=== PATIENT | female | born 1960 | race Caucasian/White ===

== ENCOUNTER 2016-07-10 20:52 | Emergency (ER) | payer MEDICAID, SELFPAY ==
[~2016-07-10] VITALS: Ht 160 cm; Wt 65.0 kg
[~2016-07-10 20:52] MED LIST: IBUP-1547 PO
[2016-07-10 22:52] LABS: BASOPHILS % (AUTO) 0.5 % (0.0-2.0); EOSINOPHILS % (AUTO) 2.6 % (1.0-6.0); HEMATOCRIT 35.3 % (36-46); HEMOGLOBIN 11.8 g/dL (12.0-16.0); LYMPHOCYTES # (AUTO) 1.5 K/uL (1.0-4.8); LYMPHOCYTES % (AUTO) 24.3 % (22.0-44.0); MEAN CORPUSCULAR HEMOGLOBIN 29.7 pg (26.0-34.0); MEAN CORPUSCULAR HGB CONC 33.4 G/dL (31.0-37.0); MEAN CORPUSCULAR VOLUME 89 fL (80-100); MONOCYTES # (AUTO) 0.6 K/uL (0.1-1.0); NEUTROPHILS # (AUTO) 3.9 K/uL (1.8-7.7); NEUTROPHILS % (AUTO) 63.6 % (40.0-70.0); PLATELET COUNT (AUTO) 206 K/uL (150-450); RED BLOOD CELL COUNT(AUTO) 3.97 MIL/uL (4.00-5.20); RED CELL DISTRIBUTION WIDTH 13.2 % (11.5-14.5); WHITE BLOOD COUNT (AUTO) 6.2 K/uL (4.5-11.0)
[2016-07-10 23:02] LABS: PROTHROMBIN TIME 10.1 SEC (9.4-11.6)
[2016-07-10 23:03] LABS: ANION GAP 9 mmol/L (8-16); CALCIUM, TOTAL 8.5 mg/dL (8.8-10.5); CARBON DIOXIDE 28 mmol/L (22-29); CHLORIDE 107 mmol/L (98-107); CREATININE 0.74 mg/dL (0.60-1.30); GLOMERULAR FILTR. RATE CALC > 60 mL/min (>60); POTASSIUM 3.4 mmol/L (3.5-5.1); SODIUM SERUM 144 mmol/L (136-145); UREA NITROGEN, BLOOD 17 mg/dL (7-18)
[2016-07-10 23:15] LABS: B-TYPE NATRIURETIC PEPTIDE 10 pg/mL (0-100)
[2016-07-10 23:28] LABS: ALANINE AMINOTRANSFERASE 22 U/L (12-78); ALBUMIN 3.5 g/dL (3.4-5.0); ASPARTATE AMINOTRANSFERASE 24 U/L (15-37); BILIRUBIN,TOTAL 0.4 mg/dL (0.1-1.0); CREATINE KINASE MB 2.8 ng/mL (0-5); CREATINE KINASE, TOTAL 306 U/L (26-192); TOTAL PROTEIN, SERUM 7.1 g/dL (6.4-8.2)
[2016-07-11 00:11] VITALS: BP 133/78
== END 2016-07-11 00:19 | disposition home or self-care (01) ==
LOC: EMS 20:58
DX: F41.9 Anxiety disorder, unspecified (principal)
CPT/HCPCS: 99285

== ENCOUNTER 2021-04-27 00:14 | Emergency (ER) | payer OTHER, MEDICAID ==
[~2021-04-27] VITALS: Ht 160 cm; Wt 70.0 kg
[~2021-04-27 00:14] MED LIST changes: -IBUP-1547 PO; +IBUP-2077 PO
[2021-04-27] MEDS ORDERED: LORazepam 2 MG TABLET PO ONE (01:30)
[2021-04-27] MEDS ORDERED: MECLIZINE HCL 25 MG TABLET PO ONE (01:30)
[2021-04-27] MEDS ORDERED: ONDANSETRON HCL 4 MG TABLET PO ONE (01:30)
[2021-04-27] MEDS ORDERED: LORazepam 1 MG TABLET PO ONE (01:30)
[2021-04-27 02:39] VITALS: BP 122/67
== END 2021-04-27 04:00 | disposition home or self-care (01) ==
LOC: EMS 00:16
DX: H81.399 Other peripheral vertigo, unspecified ear (principal); I10 Essential (primary) hypertension
CPT/HCPCS: 99284; Q0162

== ENCOUNTER 2021-05-11 18:06 | Emergency (ER) | payer OTHER, MEDICAID ==
[~2021-05-11] VITALS: Ht 157.5 cm; Wt 70.5 kg
[2021-05-12] MEDS ORDERED: MECLIZINE HCL 25 MG TABLET PO ONE
[2021-05-12 02:02] LABS: BASOPHILS % (AUTO) 0.4 % (0.0-2.0); EOSINOPHILS % (AUTO) 2.6 % (1.0-6.0); HEMATOCRIT 33.9 % (36-46); HEMOGLOBIN 11.7 g/dL (12.0-16.0); LYMPHOCYTES # (AUTO) 1.2 K/uL (1.0-4.8); LYMPHOCYTES % (AUTO) 28.4 % (22.0-44.0); MEAN CORPUSCULAR HEMOGLOBIN 29.4 pg (26.0-34.0); MEAN CORPUSCULAR HGB CONC 34.6 G/dL (31.0-37.0); MEAN CORPUSCULAR VOLUME 85 fL (80-100); MONOCYTES # (AUTO) 0.5 K/uL (0.1-1.0); MONOCYTES % (AUTO) 11.4 % (2.0-9.0); NEUTROPHILS # (AUTO) 2.3 K/uL (1.8-7.7); NEUTROPHILS % (AUTO) 57.2 % (40.0-70.0); PLATELET COUNT (AUTO) 196 K/uL (150-450); RED BLOOD CELL COUNT(AUTO) 3.99 MIL/uL (4.00-5.20); RED CELL DISTRIBUTION WIDTH 13.3 % (11.5-14.5)
[2021-05-12 02:08] LABS: ANION GAP 7 mmol/L (8-16); CARBON DIOXIDE 31 mmol/L (22-29); CHLORIDE 106 mmol/L (98-107); GLOMERULAR FILTR. RATE CALC > 60 mL/min (>60); GLUCOSE,RANDOM 114 mg/dL (70-110); POTASSIUM 3.7 mmol/L (3.5-5.1); SODIUM SERUM 144 mmol/L (136-145); UREA NITROGEN, BLOOD 6 mg/dL (7-18)
[2021-05-12 02:14] LABS: ALANINE AMINOTRANSFERASE 19 U/L (12-78); ALBUMIN 3.6 g/dL (3.4-5.0); ALKALINE PHOSPHATASE 56 U/L (46-116); ASPARTATE AMINOTRANSFERASE 17 U/L (15-37); BILIRUBIN,TOTAL 0.4 mg/dL (0.1-1.0); TOTAL PROTEIN, SERUM 7.5 g/dL (6.4-8.2)
[2021-05-12 02:53] LABS: COVID AG,FIA SOURCE NASOPHARYNGEAL
[2021-05-12 03:00] VITALS: BP 124/79
== END 2021-05-12 03:50 | disposition home or self-care (01) ==
LOC: EMS 18:07
DX: U07.1 COVID-19 (principal); R42 Dizziness and giddiness; F41.9 Anxiety disorder, unspecified; I10 Essential (primary) hypertension
CPT/HCPCS: 70450; 80053; 84484; 85025; 93005; 99285